=== PATIENT | female | born 1990 | race American Indian/Alaskan Native ===

== ENCOUNTER 2020-11-07 01:21 | Emergency (ER) | payer OTHER ==
[2020-11-07] MEDS ORDERED: Ondansetron PF 4 MG/2 ML Vial ONE (02:29)
[2020-11-07] MEDS ORDERED: Meclizine HCl 25 MG TAB ONE (02:29)
[2020-11-07 02:54] LABS: ALT (SGPT) 24 U/L (8-55); AST (SGOT) 16 U/L (5-34); Albumin 3.7 g/dL (3.5-5.0); Alkaline Phosphatase 72 U/L (40-110); Anion Gap 12 mmol/L (10-20); BUN (Urea Nitrogen) 10 mg/dL (7.0-18.7); Bilirubin, Total 0.2 mg/dL (0.2-1.2); Calc. Creatinine Clearance 0 mL/min (70-130); Calcium 9.3 mg/dL (7.8-10.44); Carbon Dioxide 24 mmol/L (22-29); Chloride 106 mmol/L (98-107); Globulin 3.1 g/dL (2.4-3.5); Glucose 168 mg/dL (70-105); Potassium 3.5 mmol/L (3.5-5.1); Protein, Total 6.8 g/dL (6.0-8.3); Sodium 138 mmol/L (136-145)
== END 2020-11-07 03:48 | disposition home or self-care (01) ==
LOC: ERS 01:21
DX: R42 Dizziness and giddiness (principal); E11.9 Type 2 diabetes mellitus without complications
CPT/HCPCS: 80053; 84703; 85014; 96374; J2405

== ENCOUNTER 2020-11-07 18:04 | Outpatient (CLI) | payer OTHER ==
[2020-11-07 18:57] LABS: BHCG - Serum Negative (NEGATIVE); Pregs Control Background? CLEAR/WHITE (CLR/WHITE); Pregs Control Bar Appear? YES (CONTROL BAR)
== END 2020-11-07 18:05 | disposition home or self-care (01) ==
LOC: LABBT 18:04
PROVIDERS: ATTEND Otolaryngology Plastic Surgery within the Head & Neck
DX: Z01.812 Encounter for preprocedural laboratory examination (principal); J35.1 Hypertrophy of tonsils; G47.33 Obstructive sleep apnea (adult) (pediatric); R06.83 Snoring; K21.9 Gastro-esophageal reflux disease without esophagitis; J34.3 Hypertrophy of nasal turbinates
CPT/HCPCS: 84703; 85014